=== PATIENT | female | born 1970 | race Two or more races ===

== ENCOUNTER 2018-09-10 11:41 | Emergency (ER) | payer MEDICAID, OTHER ==
[~2018-09-10] VITALS: Wt 59.0 kg
[~2018-09-10 11:41] MED LIST: CALC-649; PREN1TAB49
[2018-09-10 11:45] VITALS: BP 113/53; PULSE 65
[2018-09-10] MEDS ORDERED: KETOROLAC 60 MG INJ IM STA (12:21)
[2018-09-10] MEDS ORDERED: DIAZEPAM 5 MG TAB PO ONE (12:30)
[2018-09-10] MEDS ORDERED: DEXAMETHASONE 10 MG/ML 1 ML INJ IM ONE (12:30)
[2018-09-10] MEDS ORDERED: HYDR-4011 PO (12:57)
[2018-09-10] MEDS ORDERED: MED4DP PO (12:57)
[2018-09-10] MEDS ORDERED: NAPR-985 PO (12:57)
[2018-09-10] MEDS ORDERED: CYCL10TA7 PO (12:57)
--- NOTE | 2018-09-10 13:05 | ERD ---
ER Documentation Chief Complaint Chief Complaint BACK PAIN X 5 Days HPI 48-year-old female presents with back pain x5 days. Patient states that on the left side and extends down her buttock. Her pain is worse with walking and denies any recent falls or traumatic injuries. Patient has not taken medications for symptoms. Denies any changes to urination or bowel movements. Denies abdominal pain. Denies other medical problems. NKDA. Surgical history and cholecystectomy. Social history smokes 15 cigarettes a day. ROS All systems reviewed and are negative except as per history of present illness. Medications Home Meds Active Scripts Methylprednisolone* (Medrol* DOSE PACK) 4 Mg/Dose-Pack Tab.ds.pk, 4 MG PO . DIRECTED, #1 PACKET Prov:RENETTA AGUAYO PA-C 09/10/18 Cyclobenzaprine Hcl* (Cyclobenzaprine Hcl*) 10 Mg Tablet, 10 MG PO TID, #15 TAB Prov:RENETTA AGUAYO PA-C 09/10/18 Naproxen* (Naprosyn*) 500 Mg Tablet, 500 MG PO BID PRN for PAIN AND/OR IN FLAMMATION, #30 TAB Prov:RENETTA AGUAYO PA-C 09/10/18 Hydrocodone/Acetaminophen (Benicia 5-325 Tablet) 1 Each Tablet, 1 TAB PO Q6H PRN for PAIN, #7 TAB Prov:RENETTA AGUAYO PA-C 09/10/18 Reported Medications Calcium Carbonate (Calcium) 1 Tab Tablet 08/29/10 Vits W-Ca,Fe,Fa(<1MG) () 1 Tab Tablet 08/29/10 Allergies Allergies: Coded Allergies: No Known Allergy (Verified Allergy, Mild, 05/01/10) PMhx/Soc History of Surgery: Yes (Csection x2 ) Hx Neurological Disorder: No Hx Respiratory Disorders: No Hx Cardiac Disorders: No Hx Psychiatric Problems: No Hx Miscellaneous Medical Probl: No Hx Substance Use: No Hx Tobacco Use: Yes Smoking Status: Current every day smoker FmHx Family History: No diabetes, No coronary disease, No other Physical Exam Vitals Vital Signs Date Temp Pulse Resp B/P (MAP) Pulse Ox O2 O2 Flow FiO2 Time Delivery Rate 09/10/18 98.1 65 113/53 99 11:45 (73) Physical Exam GENERAL: The patient is well-appearing, well-nourished, in no acute distress CHEST: Clear to auscultation bilaterally. There are no rales, wheezes or rhonchi. HEART: Regular rate and rhythm. No murmurs, clicks, rubs or gallops. No S3 or S4. ABDOMEN:Soft, nontender and nondistended. Good bowel sounds. No rebound or gua rding. No gross peritonitis. No gross organomegaly or masses. BACK: No midline or flank tenderness. Tender to palpation down left buttock extending down left leg. No midline tenderness. EXTREMITIES: Equal pulses bilaterally. There is no peripheral clubbing, cyanosis or edema. No focal swelling or erythema. Full range of motion. Grossly neurovascularly intact. NEUROLOGIC: Alert and oriented. Cranial nerves II through XII intact. Motor strength in all 4 extremities with 5 out of 5 strength. Sensation grossly intact. Normal speech and gait. SKIN: There is no apparent rash or petechiae. The skin is warm and dry. Results 24 hrs Laboratory Tests Test 09/10/18 12:34 09/10/18 12:37 POC Beta HCG, Qualitative NEGATIVE Bedside Urine pH (LAB) 5.5 Bedside Urine Protein (LAB) Negative Bedside Urine Glucose (UA) Negative Bedside Urine Ketones (LAB) Negative Bedside Urine Blood Trace-intact Bedside Urine Nitrite (LAB) Negative Bedside Urine Leukocyte Esterase (L Negative Current Medications Medications Dose Sig/Carlee Start Time Status Last (Trade) Ordered Route PRN Stop Time Admin Dose Reason Admin Ketorolac 60 mg ONCE STAT 09/10/18 DC 09/10/18 Tromethamine IM 12:21 12:41 (Toradol) 09/10/18 12:22 Diazepam 5 mg ONCE ONCE 09/10/18 DC 09/10/18 (Valium) PO 12:30 12:41 09/10/18 12:31 10 mg ONCE ONCE 09/10/18 DC 09/10/18 Dexamethasone IM 12:30 12:41 (Decadron) 09/10/18 12:31 Procedures/MDM Course: Urine negative. Toradol, Decadron and Valium given ED. MDM: 48-year-old female presenting with back pain. A low suspicion for acute fracture dislocation. I have low suspicion for abdominal emergency radiating to the back. Patient's pain is along the buttocks the sciatic nerve distribution. Patient is discharged with strict ER precautions and told to follow-up with primary care. Patient is told symptoms change or worsen to return to ER. All questions answered at discharge Departure Diagnosis: Primary Impression: Back pain Condition: Stable Patient Instructions: Back Pain W/ Sciatica Referrals: COMM[facility]ITY CLINICS YOU HAVE RECEIVED A MEDICAL SCREENING EXAM AND THE RESULTS INDICATE THAT YOU DO NOT HAVE A CONDITION THAT REQUIRES URGENT TREATMENT IN THE EMERGENCY DEPARTMENT. FURTHER EVALUATION AND TREATMENT OF YOUR CONDITION CAN WAIT UNTIL YOU ARE SEEN IN YOUR DOCTORS OFFICE WITHIN THE NEXT 1-2 DAYS. IT IS YOUR RESPONSIBILITY TO MAKE AN APPOINTMENT FOR FOLOW-UP CARE. IF YOU HAVE A PRIMARY DOCTOR --you should call your primary doctor and schedule an appointment IF YOU DO NOT HAVE A PRIMARY DOCTOR YOU CAN CALL OUR PHYSICIAN REFERRAL HOTLINE AT IF YOU CAN NOT AFFORD TO SEE A PHYSICIAN YOU CAN CHOSE FROM THE FOLLOWING [facility] CL[facility]ICS [facility] [address] [facility]. [facility] [address] [facility] [facility] [address] [facility] [address] [facility] [address] [facility] [facility]. [address] Additional Instructions: FOLLOW UP WITH YOUR PRIMARY CARE PHYSICIAN TOMORROW.Return to this facility if you are not improving as expected. RENETTA AGUAYO PA-C Sep 10, 2018 13:05
== END 2018-09-10 14:26 | disposition left against medical advice (07) ==
LOC: FTE 11:41
DX: M54.9 Dorsalgia, unspecified (principal); F17.210 Nicotine dependence, cigarettes, uncomplicated
CPT/HCPCS: 81003; 81025; 96372; J1100; J1885; Z7502; Z7610